=== PATIENT | male | born 1955 | race Caucasian/White ===

== ENCOUNTER → 2016-08-05 | Outpatient (CLI) | payer OTHER ==
[~2016-08-05] MED LIST: IOPAMIDOL (ISOVUE-300) 100 ML BTL ONE
[2016-08-05 13:07] LABS: CREATININE 1.2 mg/dL (0.7-1.3); GLOMERULAR FILTRATION RATE > 60
== END ==
LOC: FIMAGING 11:58
PROVIDERS: ATTEND Internal Medicine Hematology & Oncology
DX: C64.1 Malignant neoplasm of right kidney, except renal pelvis (principal); K76.9 Liver disease, unspecified
CPT/HCPCS: Q9967

== ENCOUNTER → 2017-10-06 | Outpatient (CLI) | payer OTHER | LOC: FLAB 12:14 → FIMAGING 12:14 → EDSTATUS 12:16 | PROVIDERS: ATTEND Internal Medicine Hematology & Oncology | DX: C64.1 Malignant neoplasm of right kidney, except renal pelvis (principal) ==